=== PATIENT | female | born 1940 | race Caucasian/White ===

== ENCOUNTER 2016-08-06 12:38 | Inpatient (IN) | payer MEDICARE, BC ==
[~2016-08-06 12:38] MED LIST: AMBIEN PO; AMBIEN10 M1 PO; AMBIEN5 MG; ANTACID600 MG; CALCIUM ANTAC1000 MG; CALCIUM600 MG PO; CELEBREX100 MG PO; CHEMO; CLINDAMYCIN HC150 MG; CLINDAMYCIN HC150 MG PO; COUMADIN2.5 MG PO; COUMADIN4 MG; COUMADIN5 M1 PO; COUMADIN5 MG; COUMADIN6 MG; COUMADIN7.5 MG; COUMADIN7.5 MG PO; COZAAR100 MG PO; COZAAR50 MG; CRESTOR10 MG; DIGOXIN125 MCG; HYDROCHLOROTHIA25 MG PO; K-DUR20 MEQ; KEFLEX500 MG PO; LASIX20 MG; LASIX40 M1 PO; LASIX40 MG PO; LEVOTHYROXINE200 MCG; LOPRESSOR50 M1 PO; MACRODANTIN100 MG; MAXZIDE 75/50 T1 TAB; METOPROLOL TAR100 MG; METOPROLOL TART25 MG; NEURONTIN300 MG; NORCO 5/325 TAB1 TAB PO; NORVASC5 MG PO; OMEPRAZOLE20 M2 PO; PRILOSEC OTC20 MG; PRILOSEC OTC20 MG PO; PRILOSEC20 MG; PROPAFENONE HC225 MG; ROSUVASTATIN CA10 MG PO; SANCTURA20 MG; SOTALOL80 MG; SYNTHROID175 MC1 PO; TIKOSYN0.25 MG; VITAMIN D 22000 UNIT PO; ZOFRAN ODT4 MG/UDTAB PO; [UNRECOGNIZED DRUG - REMARK]
[2016-08-06 12:54] LABS: BASO % 0.3 % (0-2); CREATININE 0.81 mg/dl (0.50-1.10); EOS % 2.2 % (0-7); EOSINOPHIL ABSOLUTE COUNT 0.2 tho/cmm (0.0-0.7); GLUCOSE 100 mg/dl (65-120); HCT-HEMATOCRIT 46.5 % (34.0-49.0); HGB-HEMOGLOBIN 16.1 gm/dl (12.0-15.5); IMMATURE GRANULOCYTES ABSOLUTE 0.02 tho/cmm (0-0.03); IMMATURE GRANULOCYTES PERCENT 0.2 % (0-0.3); LYMPH % 31.2 % (20-45); LYMPH ABSOLUTE COUNT 3.1 tho/cmm (0.8-4.5); MCH (MEAN CORPUSCULAR HGB) 32.9 pg (28.0-32.0); MCHC MEAN CORPUSCULAR HGB CONC 34.6 % (32.0-36.0); MCV (MEAN CELL VOLUME) 94.9 fl (82.0-96.0); MEAN PLATELET VOLUME 10.1 cmc (9.4-12.4); MONO % 7.8 % (0-12); MONOCYTE ABSOLUTE COUNT 0.8 tho/cmm (0.0-1.2); NEUTROPHIL ABSOLUTE COUNT 5.8 tho/cmm (1.6-8.0); NEUTROPHIL-AUTOMATED 5.8 tho/cmm (1.6-8.0); NEUTROPHILS % 58.3 % (40-80); PLATELET COUNT 207 tho/cmm (150-450); POTASSIUM 3.6 mmol/L (3.7-5.1); RED CELL DISTRIBUTION WIDTH 13.4 % (12.4-16.4); SODIUM 139 mmol/L (135-146); eGFR VALUE FOR BLACK 81 mL/Min
[2016-08-06 13:00] LABS: PROTHROMBIN TIME 11.5 SECONDS (9.0-13.6)
[2016-08-06 13:15] LABS: ALB/GLOB RATIO 1.1 (0.8-2.0); ALBUMIN 3.9 g/dl (3.5-5.0); ALKALINE PHOSPHATASE 78 U/L (33-138); ALT/SGPT 24 U/L (12-78); AST/SGOT 24 U/L (10-40); BLOOD UREA NITROGEN 20 mg/dl (6-24); CALCIUM 9.2 mg/dl (8.5-10.5); CARBON DIOXIDE-VENOUS 31 mmol/L (22-32)
[2016-08-06 13:16] LABS: ANION GAP 10 mmol/L (0-20); CHLORIDE 102 mmol/L (98-110)
[2016-08-06 13:20] LABS: ESR-ERYTHROCYTE SED RATE 5 mm/hr (0-30)
[2016-08-06] MEDS ORDERED: VITAMIN D31000 UNI3 PO (17:35)
[2016-08-06] MEDS ORDERED: ARIMIDEX1 M1 PO (17:36)
[2016-08-06] MEDS ORDERED: ASPIRIN325 M3 PO (17:38)
[2016-08-06] MEDS ORDERED: MECLIZINE HCL25 M3 (17:38)
[2016-08-06] MEDS ORDERED: IRON325 M3 PO (17:38)
[2016-08-09 06:15] LABS: BASO % 0.3 % (0-2); EOSINOPHIL ABSOLUTE COUNT 0.2 tho/cmm (0.0-0.7); HCT-HEMATOCRIT 40.1 % (34.0-49.0); HGB-HEMOGLOBIN 13.7 gm/dl (12.0-15.5); IMMATURE GRANULOCYTES ABSOLUTE 0.01 tho/cmm (0-0.03); IMMATURE GRANULOCYTES PERCENT 0.2 % (0-0.3); LYMPH % 32.8 % (20-45); MCH (MEAN CORPUSCULAR HGB) 32.3 pg (28.0-32.0); MCHC MEAN CORPUSCULAR HGB CONC 34.2 % (32.0-36.0); MCV (MEAN CELL VOLUME) 94.6 fl (82.0-96.0); MEAN PLATELET VOLUME 9.9 cmc (9.4-12.4); MONO % 7.2 % (0-12); MONOCYTE ABSOLUTE COUNT 0.4 tho/cmm (0.0-1.2); NEUTROPHIL ABSOLUTE COUNT 3.4 tho/cmm (1.6-8.0); NEUTROPHIL-AUTOMATED 3.4 tho/cmm (1.6-8.0); NEUTROPHILS % 56.5 % (40-80); PLATELET COUNT 163 tho/cmm (150-450); RED BLOOD COUNT 4.24 mil/cmm (4.00-5.20); RED CELL DISTRIBUTION WIDTH 13.5 % (12.4-16.4)
[2016-08-09] MEDS ORDERED: LOVENOX120 MG/0.1 SC (15:08)
[2016-08-09] MEDS ORDERED: COUMADIN5 M2 PO (15:08)
[2016-08-09] MEDS ORDERED: COZAAR25 M1 PO (15:08)
== END 2016-08-09 17:53 | DRG 65 ==
LOC: EDMED 12:38 → EMR2 14:25 → 5EB 16:15
PROVIDERS: Emergency Medicine; Internal Medicine; ADMIT Hospitalist
PROC: B24BZZ4 Ultrasonography of Heart with Aorta, Transesophageal (ICD-10-PCS; principal; 2016-08-07)
DX: I63.9 Cerebral infarction, unspecified (principal); Q21.1 Atrial septal defect; I51.3 Intracardiac thrombosis, not elsewhere classified; G62.0 Drug-induced polyneuropathy; I48.91 Unspecified atrial fibrillation; I10 Essential (primary) hypertension; I07.1 Rheumatic tricuspid insufficiency; E03.9 Hypothyroidism, unspecified; R29.810 Facial weakness; R47.1 Dysarthria and anarthria; E78.5 Hyperlipidemia, unspecified; Z85.3 Personal history of malignant neoplasm of breast; Z85.038 Personal history of other malignant neoplasm of large intestine; Z85.828 Personal history of other malignant neoplasm of skin; Z95.0 Presence of cardiac pacemaker; K21.9 Gastro-esophageal reflux disease without esophagitis; E66.9 Obesity, unspecified; Z68.37 Body mass index [BMI] 37.0-37.9, adult; Z79.82 Long term (current) use of aspirin; Z79.01 Long term (current) use of anticoagulants; Z92.21 Personal history of antineoplastic chemotherapy
CPT/HCPCS: C8925; C8929; G8978-GO-CI; G8979-GO-CI; G8980-GO-CI; J1644; J1650; J2250; J3010; J7030